=== PATIENT | female | born 1950 | race African-American/Black ===

== ENCOUNTER → 2017-12-04 | Outpatient (CLI) | payer BC ==
--- NOTE | 2017-12-05 13:14 | WOMENS IMAGING REPORT ---
EXAM DESCRIPTION: 3D SCREENING MAMMO BILAT COMPLETED DATE/TIME: 12/04/2017 3:11 pm REASON FOR STUDY: SCREENING MAMMO Z12.31 ENCNTR SCREEN MAMMOGRAM FOR MALIGNANT NEOPLASM OF MAGDA COMPARISON: None. TECHNIQUE: Standard craniocaudal and mediolateral oblique views of each breast recorded using digita l acquisition and breast tomosynthesis. LIMITATIONS: None. FINDINGS: No masses, calcifications or architectural distortion. No areas of suspicion. Read with the assistance of CAD. .[facility] - R2 Cenova Version 1.3 .[facility] - R2 Cenova Version 1.3 .[facility] - R2 Cenova Version 2.4 .[facility] - R2 Cenova Version 2.4 .[facility] - R2 P[employer]ed Pocket Machine Operator Version 9.2 IMPRESSION: NORMAL MAMMOGRAM. BIRADS 1. BREAST DENSITY: c. The breasts are heterogeneously dense, which may obscure small masses. BIRAD: 1 NEGATIVE RECOMMENDATION: ROUTINE SCREENING COMMENT: The patient has been notified of the results by letter per SA requirements. Additional no tification policies are in place for contacting patient with suspicious or incomplete findings. Quality ID #225: The [employer] recommends an annual screening mammogram for women aged 40 years or over. This facility utilizes a reminder system to ensure that all patients receive reminder letters, and/or direct phone calls for appointments. This includes reminders for routine scr eening mammograms, diagnostic mammograms, or other Breast Imaging Interventions when appropriate. Th is patient will be placed in the appropriate reminder system. The [employer] (ACR) has developed recommendations for screening MRI of the breast s in certain patient populations, to be used in conjunction with mammography. Breast MRI surveillanc e may be appropriate for women with more than 20% lifetime risk of developing breast cancer as deter mined by genetic testing, significant family history of the disease, or history of mantle radiation f or Hodgkins Disease. ACR Practice Guidelines 2008. DBT Technology DBT is a type of tomographic mammography. With conventional mammography, overlapping breast tissue ma y make lesions difficult to detect, even with good compression. DBT uses an x-ray tube that rotates a round the breast, taking images at different angles. These images are then combined to create thin sl ices of the breast that the radiologist can view as a 3D reconstruction. The Scalix unit can perform full-field digital mammograms (2D imaging); or DBT (3D imaging); or both, in a combination mode that quickly performs both the mammogram and the tomosynthesis scan while the breast is still compressed. PQRS 6045F: Fluoroscopic imaging is not utilized for breast tomosynthesis. TECHNICAL DOCUMENTATION: FINDING NUMBER: (1) ASSESSMENT: (1) JOB ID: [id number] [employer]- All Rights Reserved Reading location - IP/workstation name: [email or web address]
== END ==
LOC: WI 14:59
PROVIDERS: ATTEND Specialist
DX: Z12.31 Encounter for screening mammogram for malignant neoplasm of breast (principal)
CPT/HCPCS: 77063; 77067

== ENCOUNTER 2018-03-22 23:01 | Emergency (ER) | payer BC, MEDICARE ==
[2018-03-23] MEDS ORDERED: ASPIRIN 81 MG TABLET, CHEWABLE ONE (00:32)
[2018-03-23] MEDS ORDERED: ASPIRIN 81 MG TABLET, CHEWABLE PO ONE (00:35)
--- NOTE | 2018-03-23 00:37 | ER Document Report ---
ED Medical Screen (RME) - General Chief Complaint: Chest Pain Stated Complaint: CHEST PAIN Time Seen by Provider: 03/23/18 00:33 Primary Care Provider: HORTENSIA CASTRO MD [Primary Care Provider] - Follow up as needed Notes: 67-year-old -[place] female with history of tobacco abuse, family history coming in tonight with left-sided chest pain radiating to her neck and jaw and left arm. Also slightly short of breath. I have treated and performed a rapid initial assessment of this patient. A comprehensive ED assessment and evaluation of the patient, analysis of test results and completion of medical decision making process will be conducted by additional ED providers. PHYSICAL EXAMINATION: GENERAL: Looking uncomfortable in triage. Positive Barnes sign LUNGS: Breath sounds clear to auscultation bilaterally and equal. No wheezes rales or rhonchi. HEART: Regular rate and rhythm without murmurs, rubs, gallops. TRAVEL OUTSIDE OF THE [place] IN LAST 30 DAYS: No - Related Data Allergies/Adverse Reactions: No Known Allergies Allergy (Unverified 08/25/12 02:38) Past Medical History Neurological Medical History: Reports: Hx Migraine - USED TO HAVE CLUSTER HEADACHES GI Medical History: Reports: Hx Gastroesophageal Reflux Disease Past Surgical History: Reports: Hx Appendectomy, Hx Gynecologic Surgery - tubal ligation, Hx Orthopedic Surgery - scoliosis, Hx Tubal Ligation - Immunizations Hx Diphtheria, Pertussis, Tetanus Vaccination: - unk Doctor's Discharge - Discharge Referrals: HORTENSIA CASTRO MD [Primary Care Provider] - Follow up as needed
[2018-03-23 01:09] LABS: ABSOLUTE BASOPHILS # (AUTO) 0.1 10^3/uL (0.0-0.2); ABSOLUTE EOSINOPHILS # (AUTO) 0.1 10^3/uL (0.0-0.6); ABSOLUTE LYMPHOCYTES (AUTO) 2.7 10^3/uL (0.5-4.7); ABSOLUTE MONOCYTES (AUTO) 0.7 10^3/uL (0.1-1.4); ABSOLUTE NEUT (AUTO) 4.1 10^3/uL (1.7-8.2); BASOPHILS % (AUTO) 0.9 % (0-2); EOSINOPHILS % (AUTO) 1.1 % (0-6); HEMOGLOBIN 13.9 g/dL (12.0-15.5); LYMPHOCYTES % (AUTO) 35.6 % (13-45); MEAN CORPUSCULAR HEMOGLOBIN 30.7 pg (27.0-33.4); MEAN CORPUSCULAR HGB CONC 33.9 g/dL (32.0-36.0); MEAN CORPUSCULAR VOLUME 91 fl (80-97); MONOCYTES % (AUTO) 9.7 % (3-13); PLATELET COUNT 395 10^3/uL (150-450); RED BLOOD COUNT 4.52 10^6/uL (3.72-5.28); RED CELL DISTRIBUTION WIDTH 12.8 % (11.5-14.0); SEGMENTED NEUTROPHILS % (AUTO) 52.7 % (42-78); TOTAL CELLS COUNTED % (AUTO) 100 %; WHITE BLOOD COUNT 7.7 10^3/uL (4.0-10.5)
[2018-03-23] MEDS ORDERED: MORPHINE SULFATE 10 MG/ML INJ IV PRN (01:18)
[2018-03-23] MEDS ORDERED: ONDANSETRON HCL INJ/PF 4 MG/2 ML SDV IV ONE (01:18)
[2018-03-23 01:19] LABS: ALANINE AMINOTRANSFERASE 25 U/L (9-52); ALBUMIN 4.9 g/dL (3.5-5.0); ALKALINE PHOSPHATASE 115 U/L (38-126); ANION GAP 11 (5-19); ASPARTATE AMINO TRANSFERASE 30 U/L (14-36); BILIRUBIN,DIRECT 0.1 mg/dL (0.0-0.4); BILIRUBIN,TOTAL 0.3 mg/dL (0.2-1.3); BLOOD UREA NITROGEN 11 mg/dL (7-20); CALCIUM 10.4 mg/dL (8.4-10.2); CARBON DIOXIDE 28 mmol/L (22-30); CHLORIDE 104 mmol/L (98-107); GLUCOSE 106 mg/dL (75-110); POTASSIUM 4.6 mmol/L (3.6-5.0); SODIUM 142.7 mmol/L (137-145); TOTAL PROTEIN 7.5 g/dL (6.3-8.2)
--- NOTE | 2018-03-23 01:22 | ER Document Report ---
ED General - General TRAVEL OUTSIDE OF THE [place] IN LAST 30 DAYS: No <JOIE CLIFFORD - Last Filed: 03/23/18 03:51> <JOIE PATEL - Last Filed: 03/23/18 04:47> - General Chief Complaint: Chest Pain Stated Complaint: CHEST PAIN Time Seen by Provider: 03/23/18 00:33 Primary Care Provider: HORTENSIA CASTRO MD [Primary Care Provider] - Follow up tomorrow Notes: Patient is a 67-year-old female without chronic medical problems who presents with 2 hours of progressively worsening upper abdominal pain with associated left upper extremity and left jaw pain. She also reports left-sided chest pain. Describes the pain as severe, intermittent periods of worsening. Nothing seems to improve or worsen her symptoms. Denies any history of similar symptoms in the past. Notes associated nausea but no vomiting. States he feels somewhat short of breath. Has not contacted her primary care physician regarding today's concerns. (JOIE CLIFFORD) - Related Data Allergies/Adverse Reactions: No Known Allergies Allergy (Unverified 08/25/12 02:38) Past Medical History - General Information source: Patient - Social History Smoking Status: Current Every Day Smoker Chew tobacco use (# tins/day): No Frequency of alcohol use: None Drug Abuse: None Lives with: Alone Family History: Reviewed & Not Pertinent Patient has suicidal ideation: No Patient has homicidal ideation: No Neurological Medical History: Reports: Hx Migraine - USED TO HAVE CLUSTER HEADACHES Renal/ Medical History: Denies: Hx Peritoneal Dialysis GI Medical History: Reports: Hx Gastroesophageal Reflux Disease Past Surgical History: Reports: Hx Appendectomy, Hx Gynecologic Surgery - tubal ligation, Hx Orthopedic Surgery - scoliosis, Hx Tubal Ligation - Immunizations Hx Diphtheria, Pertussis, Tetanus Vaccination: - unk <JOIE CLIFFORD - Last Filed: 03/23/18 03:51> Review of Systems <JOIE CLIFFORD - Last Filed: 03/23/18 03:51> - Review of Systems Notes: Constitutional: Negative for fever. HENT: Negative for sore throat. Eyes: Negative for visual changes. Cardiovascular: Positive for chest pain. Respiratory: Positive for shortness of breath. Gastrointestinal: Positive for abdominal pain and nausea Genitourinary: Negative for dysuria. Musculoskeletal: Positive for mid back pain Skin: Negative for rash. Neurological: Negative for headaches, weakness or numbness. 10 point ROS negative except as marked above and in HPI. (JOIE CLIFFODR) Physical Exam - Vital signs Interpretation: Hypertensive <JOIE CLIFFORD - Last Filed: 03/23/18 03:51> - Vital signs Vitals: Temp Pulse BP Pulse Ox 97.5 F 73 151/94 H 100 03/22/18 23:35 03/22/18 23:35 03/22/18 23:35 03/22/18 23:35 Notes: PHYSICAL EXAMINATION: GENERAL: Appears very uncomfortable, writhing around in the bed HEAD: Atraumatic, normocephalic. EYES: Pupils equal round and reactive to light, extraocular movements intact, sclera anicteric, conjunctiva are normal. ENT: nares patent, oropharynx clear without exudates. Moderately dry mucous membranes. NECK: Normal range of motion, supple without lymphadenopathy LUNGS: Breath sounds clear to auscultation bilaterally and equal. No wheezes rales or rhonchi. HEART: Regular rate and rhythm without murmurs ABDOMEN: Soft, mild tenderness to palpation of the epigastrium left upper quadrant otherwise no localized areas of tenderness, normoactive bowel sounds. No guarding, no rebound. No masses appreciated. EXTREMITIES: Normal range of motion, no pitting or edema. No cyanosis. NEUROLOGICAL: No focal neurological deficits. Moves all extremities spontaneously and on command. PSYCH: Moderately anxious SKIN: Warm, Dry, normal turgor, no rashes or lesions noted. (JOIE CLIFFORD) Course - Laboratory Result Diagrams: 03/23/18 00:55 03/23/18 00:55 - Diagnostic Test Radiology reviewed: Image reviewed, Reports reviewed <JOIE CLIFFORD - Last Filed: 03/23/18 03:51> - Laboratory Result Diagrams: 03/23/18 00:55 03/23/18 00:55 <JOEI PATEL - Last Filed: 03/23/18 04:47> - Re-evaluation Re-evalutation: 03/23/18 01:18 Patient presents complaining of left arm pain, left jaw pain chest and abdominal pain radiating to her back. My initial examination the patient appears to be very uncomfortable, intermittent writhing around in the bed. She is dry heaving. Bedside blood pressure testing reveals pressures of 219 systolic on the right upper extremity and 179 in the left upper extremity. These were reche cked on 2 occasions by me personally and there remains anywhere between 30 and 40 mmHg difference between the left and right upper extremity. Certainly with chest and abdominal pain radiating to the back this is very concerning for an aortic dissection and a CTA of the chest abdomen and pelvis has been immediately ordered. Alternative considerations would include myocardial infarction although initial EKG unremarkable. Pulmonary embolus seems quite unlikely in this context. Certainly a upper abdominal pathology such as a biliary colic, pancreas has a gastritis could be on the differential although these would be diagnoses of exclusion given the marked difference of blood pressures from left to right and complains of chest and abdominal pain radiating to the back. 03/23/18 03:48 Patient appears much improved. No longer having any significant pain. Repeat abdominal exam remains benign. Thankfully, CT of the chest abdomen and pelvis is completely unremarkable with exception of atherosclerotic disease likely secondary to patient's advanced age and smoking history. Labs completely unremarkable. Repeat troponin is pending. Heart score is 3. If delta troponin remains within acceptable limits patient and family at bedside are agreeable to outpatient follow-up. Suspect the patient may have a gastritis duodenitis picture and I started her on famotidine and Carafate. At this time will discharge with return precautions and follow-up recommendations. Verbal discharge instructions given a the bedside and opportunity for questions given. Medication warnings reviewed. Patient is in agreement with this plan and has verbalized understanding of return precautions and the need for primary care follow-up in the next 24-72 hours. (JOIE CLIFFORD) 03/23/18 04:46 Patient's pain iwa improved with a GI cocktail. Her pain is now starting to come back and rates into her back. Her troponins are negative. A CTA of the chest was negative. I do agree with Dr. Clifford's assessment that this most likely is GI in etiology. I will give her a dose of Carafate and Maalox to see if I can get her pain under better control again before discharging her. (JOIE PATEL) - Vital Signs Vital signs: Temp Pulse Resp BP Pulse Ox 98.2 F 73 18 167/79 H 100 03/23/18 01:13 03/22/18 23:35 03/23/18 01:13 03/23/18 03:12 03/23/18 03:12 - Laboratory Laboratory results interpreted by me: 03/23/18 00:55 Calcium 10.4 H - Diagnostic Test Radiology results interpreted by me: 03/23/18 03:49 Chest x-ray: No acute infiltrate or pneumothorax (JOIE CLIFFORD) - EKG Interpretation by Me Additional EKG results interpreted by me: 03/23/18 03:49 Sinus rhythm, rate 82. No ST elevations or depressions. QTC is 449. (JOIE UMANA) Discharge <JOIE CLIFFORD - Last Filed: 03/23/18 03:51> <JOIE PATEL - Last Filed: 03/23/18 04:47> - Discharge Clinical Impression: Essential hypertension, Left upper limb pain, Upper abdominal pain Chest pain Qualifiers: Chest pain type: unspecified Qualified Code(s): R07.9 - Chest pain, unspecified Condition: Good Disposition: HOME, SELF-CARE Additional Instructions: You were seen today for chest pain. The exact cause of your pain is unclear. However, based on your cardiac enzyme testing, chest x-ray, and EKG it does not appear that it is from an immediately life-threatening cause at this time. Your being started on medications to treat for the possibility that your pain could be coming from the upper intestines. Please take as directed. Although your testing here is normal is critical that you follow-up with your primary care physician for continued evaluation of this chest pain and possible stress testing. I recommended you see your physician within the next 24-48 hours to be evaluated for consideration of a stress test. Please return to emergency department immediately if you have worsening of your chest pain, shortness of breath, vomiting, become unable to exert yourself due to pain or difficulty breathing, you pass out, or have any pain that radiates into your arms, jaw, or back. Please also return if you have any additional symptoms that are concerning to you. The images of your abdomen also revealed significant constipation. I would advise 1-2 capfuls of MiraLAX daily to help treat your constipation. Prescriptions: Famotidine 40 mg PO BID #60 tablet Sucralfate [Carafate 1 gm Tablet] 1 gm PO ACHS #120 tablet Referrals: HORTENSIA CASTRO MD [Primary Care Provider] - Follow up tomorrow
[2018-03-23 01:39] LABS: LIPASE 54.6 U/L (23-300)
--- NOTE | 2018-03-23 01:44 | RADIOLOGY REPORT (SQ) ---
EXAM DESCRIPTION: XR ABDOMEN 1 VIEW (KUB) COMPLETED DATE/TME: 03/23/2018 00:00 CLINICAL HISTORY: 67 years, Female, UPRIGHT ABDOMEN TO R/O FREE AIR COMPARISON: None. NUMBER OF VIEWS: 1 TECHNIQUE: AP upright abdomen LIMITATIONS: None. FINDINGS: No free air under the hemidiaphragms. The bowel gas pattern is nonspecific. Stool throughout colon. Osseous structures are grossly intact IMPRESSION: No free air. Nonspecific bowel gas pattern copyright 2010 [employer]- All Rights Reserved
--- NOTE | 2018-03-23 01:48 | RADIOLOGY REPORT (SQ) ---
EXAM DESCRIPTION: XR CHEST 1 VIEW COMPLETED DATE/TME: 03/23/2018 00:45 CLINICAL HISTORY: 67 years, Female, cp COMPARISON: None. NUMBER OF VIEWS: 1 TECHNIQUE: Portable chest LIMITATIONS: None. FINDINGS: The heart size is normal. Osteopenia. Lungs are clear. No pneumothorax IMPRESSION: No acute cardiopulmonary process copyright 2010 [employer]- All Rights Reserved
--- NOTE | 2018-03-23 03:37 | RADIOLOGY REPORT (SQ) ---
EXAM DESCRIPTION: CTA chest, ABDOMEN PELVIS WITHOUT THEN WITH IV CONTRAST COMPLETED DATE/TME: 03/23/2018 01:18 CLINICAL HISTORY: 67 years, Female, eval dissection COMPARISON: None. TECHNIQUE: [id number] Images stored on PACS. All CT scanners at this facility use dose modulation, iterative reconstruction, and/or weight based dosing when appropriate to reduce radiation dose to as low as reasonably achievable (ALARA). Axial CTA images were obtained with coronal and sagittal MIPS reconstructions. [facility]: Dose Right [facility]: CareDose [facility]: Dose Right [facility]: Teradose 4D [facility]: Smart Technologies LIMITATIONS: None. FINDINGS: CTA chest: The mediastinal vasculature enhances normally. No intraluminal filling defect to suggest pulmonary embolus. Negative for thoracic aortic aneurysm or dissection. No mediastinal or hilar adenopathy. The heart and pericardium are unremarkable. Osseous structures of the thorax are grossly intact. No pneumothorax. Mild emphysematous changes in the upper lobes and apices. Visualized airways are patent. Lungs are clear. CTA abdomen/pelvis: Osseous structures are grossly intact. Subcentimeter hypodensity near the dome of the liver, likely tiny cyst or hemangioma. The spleen, adrenal glands, pancreas, kidneys are unremarkable. The gallbladder is present. No gross evidence for bowel obstruction. Abundant stool in the colon. No free air or free fluid. The appendix is not seen. No pericecal inflammation. The celiac axis, superior mesenteric artery, inferior mesenteric artery are patent. There is a short segment of stenosis with at least 75% narrowing of the origin of the left renal artery. Renal arteries are otherwise patent. Atheromatous change with mural thrombus formation and intimal calcification of the abdominal aorta. Negative for aneurysm. Ulcerative plaque formation of the infrarenal abdominal aorta. Maximal diameter is 1.5 x 1.4 cm. Heavy atheromatous changes of the bilateral common iliac arteries. The internal, and external iliac arteries are patent. Mild atheromatous calcification of the common femoral arteries bilaterally.. IMPRESSION: Negative for pulmonary embolus. Negative for thoracic or abdominal aortic aneurysm or dissection. Heavy atheromatous changes of the infrarenal abdominal aorta with ulcerative plaque formation. Short segment of at least 75% luminal narrowing at the origin of the left renal artery. Mild emphysematous changes. TECHNICAL DOCUMENTATION: Quality ID # [id number]: Final reports with documentation of one or more dose reduction techniques (e.g., Automated exposure control, adjustment of the mA and/or kV according to patient size, use of iterative reconstruction technique) copyright 2010 [facility] [employer]- All Rights Reserved
[2018-03-23] MEDS ORDERED: FAMOTIDINE 20 MG TABLET PO ONE (03:38)
[2018-03-23] MEDS ORDERED: METOCLOPRAMIDE HCL ORAL SOLN 10 MG/10 ML UDCUP PO ONE (03:38)
[2018-03-23] MEDS ORDERED: MAG HYDROX/AL HYDROX/SIMETH SUSP 30 ML UDCUP PO ONE ×2 (03:38→04:46)
[2018-03-23] MEDS ORDERED: LIDOCAINE 2% VISCOUS SOLN 20 ML UDCUP PO ONE (03:38)
[2018-03-23] MEDS ORDERED: SUCRALFATE SUSP 1 GM/10 ML UDCUP PO ONE (04:43)
[2018-03-23 05:12] VITALS: BP 151/82
--- NOTE | 2018-03-23 12:36 | EKG REPORT ---
SEVERITY:- BORDERLINE ECG - SINUS RHYTHM BORDERLINE T WAVE ABNORMALITIES : Confirmed by: Sha Trinidad 23-Mar-2018 12:34:37
== END 2018-03-23 05:13 | disposition home or self-care (01) ==
LOC: ER 23:01
DX: I10 Essential (primary) hypertension (principal); R07.9 Chest pain, unspecified; R10.10 Upper abdominal pain, unspecified; M79.602 Pain in left arm; R68.84 Jaw pain; R11.0 Nausea; F17.200 Nicotine dependence, unspecified, uncomplicated; Z98.51 Tubal ligation status
CPT/HCPCS: 93005; 99285; 96374; 96375; 36415; 83690; 85025; 80053; 84484; 71045; 74018; 71275; 74174; 93010; A9270 ×3; J3490; J2270; J2405

== ENCOUNTER → 2019-03-07 | Outpatient (CLI) | payer MEDICARE, OTHER ==
--- NOTE | 2019-03-07 13:11 | WOMENS IMAGING REPORT ---
EXAM DESCRIPTION: BILAT SCREENING MAMMO W/CAD COMPLETED DATE/TIME: 03/07/2019 10:01 am REASON FOR STUDY: Z12.31 SCREENING MAMMO Z12.31 ENCNTR SCREEN MAMMOGRAM FOR MALIGNANT NEOPLASM OF B RE COMPARISON: 12/04/2017. EXAM PARAMETERS: Standard craniocaudal and mediolateral oblique views of each breast recorded using digital acquisition. Read with the assistance of CAD. .[facility] - [employer] Machine Tender Version 9.2 LIMITATIONS: None. FINDINGS: No suspicious masses, suspicious calcifications or architectural distortion. No areas of c oncern. IMPRESSION: Negative MAMMOGRAM. BIRADS 1 BREAST DENSITY: c. The breasts are heterogeneously dense, which may obscure small masses. BIRAD: ASSESSMENT: 1 NEGATIVE RECOMMENDATION: ROUTINE SCREENING COMMENT: The patient has been notified of the results by letter per SA requirements. Additional no tification policies are in place for contacting patient with suspicious or incomplete findings. Quality ID #225: The [employer] recommends an annual screening mammogram for women aged 40 years or over. This facility utilizes a reminder system to ensure that all patients receive reminder letters, and/or direct phone calls for appointments. This includes reminders for routine scr eening mammograms, diagnostic mammograms, or other Breast Imaging Interventions when appropriate. Th is patient will be placed in the appropriate reminder system. TECHNICAL DOCUMENTATION: FINDING NUMBER: (1) ASSESSMENT: (1) JOB ID: [id number] [employer]- All Rights Reserved Reading location - IP/workstation name: [email or web address]
== END ==
LOC: WI 09:35
PROVIDERS: ATTEND Family Medicine Geriatric Medicine
DX: Z12.31 Encounter for screening mammogram for malignant neoplasm of breast (principal)
CPT/HCPCS: 77067